=== PATIENT | male | born 1955 | race Caucasian/White ===

== ENCOUNTER → 2019-12-11 | Day surgery (SDC) | payer MEDICARE, MEDICAID ==
[~2019-12-11] MED LIST: LIDOCAINE HCL 1% 20ML VIAL (Pyxis) INJ ONE; SODIUM BICARBONATE 4% (2.4MEQ) 5ML VIAL IV ONE
== END | disposition home or self-care (01) ==
LOC: RADANGIO 10:37
PROVIDERS: ATTEND Podiatrist Foot & Ankle Surgery
DX: Z45.2 Encounter for adjustment and management of vascular access device (principal); Z79.899 Other long term (current) drug therapy; Z98.890 Other specified postprocedural states
CPT/HCPCS: 36573; C1725; J3490; 76937

== ENCOUNTER 2020-01-04 18:29 | Emergency (ER) | payer MEDICARE, MEDICAID ==
[~2020-01-04] VITALS: Ht 177.8 cm; Wt 83.0 kg
[2020-01-04 18:34] VITALS: BP 142/59
== END 2020-01-04 19:15 | disposition left against medical advice (07) ==
LOC: ER 18:29
DX: Z53.21 Procedure and treatment not carried out due to patient leaving prior to being seen by health care provider (principal)

== ENCOUNTER 2020-02-01 10:59 | Emergency (ER) | payer MEDICARE, MEDICAID ==
[~2020-02-01] VITALS: Ht 175.3 cm; Wt 79.0 kg
[2020-02-01 12:26] VITALS: BP 137/60
== END 2020-02-01 12:33 | disposition left against medical advice (07) ==
LOC: ER 10:59
DX: Z46.82 Encounter for fitting and adjustment of non-vascular catheter (principal); E11.9 Type 2 diabetes mellitus without complications; I10 Essential (primary) hypertension
CPT/HCPCS: 99281

== ENCOUNTER 2021-07-23 09:17 | Emergency (ER) | payer MEDICARE, MEDICAID ==
[~2021-07-23] VITALS: Ht 175.3 cm; Wt 84.0 kg
[2021-07-23] MEDS ORDERED: ACETAMINOPHEN 325MG TABLET PO STA (10:41)
[2021-07-23 11:20] VITALS: BP 123/75
[2021-07-23 12:08] LABS: CHLORIDE 103 mEq/L (98-107)
[2021-07-23 12:14] LABS: BASOPHILS % 0.3 % (0.0-2.0); EOSINOPHILS % 3.7 % (0.0-5.0); HEMATOCRIT. 46.4 % (42.0-52.0); HEMOGLOBIN. 15.9 g/dL (14.0-18.0); LYMPHOCYTES % 30.6 % (20.0-50.0); MEAN CORPUSCULAR HEMOGLOBIN 32.1 pg (28.0-32.0); MEAN CORPUSCULAR VOLUME 93.4 fL (80.0-94.0); MEAN PLATELET VOLUME 9.8 fl (7.4-10.4); MONOCYTES % 9.5 % (2.0-8.0); NEUTROPHILS % 55.9 % (40.0-76.0); PLATELET 181 x1000/uL (130-400); RED BLOOD CELL COUNT 4.97 mill/uL (4.7-6.1); RED CELL DISTRIBUTION WIDTH 14.1 % (11.6-14.6)
== END 2021-07-23 13:09 | disposition left against medical advice (07) ==
LOC: ER 09:50
DX: S81.802A Unspecified open wound, left lower leg, initial encounter (principal); X58.XXXA Exposure to other specified factors, initial encounter; Y93.89 Activity, other specified; Y92.89 Other specified places as the place of occurrence of the external cause; Y99.8 Other external cause status; E11.9 Type 2 diabetes mellitus without complications; I10 Essential (primary) hypertension; Z98.890 Other specified postprocedural states; I87.8 Other specified disorders of veins
CPT/HCPCS: 36415; 80053; 82962; 85025; 93970; 99284

== ENCOUNTER 2021-08-30 19:59 | Emergency (ER) | payer MEDICARE, MEDICAID ==
[~2021-08-30] VITALS: Ht 175.3 cm; Wt 88.2 kg
[2021-08-31 00:10] LABS: BASOPHILS % 0.8 % (0.0-2.0); EOSINOPHILS % 4.2 % (0.0-5.0); HEMATOCRIT. 45.8 % (42.0-52.0); HEMOGLOBIN. 16.1 g/dL (14.0-18.0); LYMPHOCYTES % 25.9 % (20.0-50.0); MEAN CORPUSCULAR HEMOGLOBIN 32.5 pg (28.0-32.0); MEAN CORPUSCULAR VOLUME 92.3 fL (80.0-94.0); MEAN PLATELET VOLUME 8.8 fl (7.4-10.4); MONOCYTES % 8.6 % (2.0-8.0); NEUTROPHILS % 60.5 % (40.0-76.0); PLATELET 175 x1000/uL (130-400); RED BLOOD CELL COUNT 4.95 mill/uL (4.7-6.1); RED CELL DISTRIBUTION WIDTH 14.3 % (11.6-14.6)
[2021-08-31 00:14] LABS: CHLORIDE 105 mEq/L (98-107)
[2021-08-31] MEDS ORDERED: MORPHINE SULFATE 4 MG/ML CPJ (NOT FOR IM USE) IV ONE (02:30)
[2021-08-31] MEDS ORDERED: IOHEXOL-350 100 ML BOTTLE ONE ×2 (03:18→03:22)
[2021-08-31 04:11] VITALS: BP 126/75
== END 2021-08-31 04:48 | disposition left against medical advice (07) ==
LOC: ER 19:59 → EDBEDREQ 08-31 04:42 → EDBEDREQTM 08-31 04:42 → EDBEDREQSVC 08-31 04:42 → ER 08-31 04:48 → CMPBEDREQ 08-31 05:39
DX: I73.9 Peripheral vascular disease, unspecified (principal); E11.9 Type 2 diabetes mellitus without complications; I10 Essential (primary) hypertension; Z86.718 Personal history of other venous thrombosis and embolism; Z98.890 Other specified postprocedural states
CPT/HCPCS: 36415; 71045; 80053; 83880; 85025; 93005; 93970; 96374; 99285; J2270; Q9967

== ENCOUNTER 2023-08-01 00:23 | Emergency (ER) | payer MEDICARE, MEDICAID ==
[~2023-08-01] VITALS: Ht 177.8 cm; Wt 82.0 kg
[2023-08-01 00:55] VITALS: BP 145/73; PULSE 83; RESP 14; TEMP 98.5; O2SAT 95
[2023-08-01] MEDS ORDERED: SODIUM CHLORIDE 0.9% 1000ML BAG (SEPSIS BOLUS) IV ONE (01:15)
[2023-08-01] MEDS ORDERED: PIPERACILLIN/TAZO 3.375G/50ML 50 ML IV ONE (01:15)
[2023-08-01] MEDS ORDERED: VANCOMYCIN 1G PREMIX 200 ML IV ONE (01:15)
== END 2023-08-01 02:22 | disposition left against medical advice (07) ==
LOC: ER 00:23
DX: S99.922A Unspecified injury of left foot, initial encounter (principal); I10 Essential (primary) hypertension; E11.9 Type 2 diabetes mellitus without complications; Z98.890 Other specified postprocedural states; X58.XXXA Exposure to other specified factors, initial encounter; Y93.89 Activity, other specified; Y92.89 Other specified places as the place of occurrence of the external cause; Y99.8 Other external cause status
CPT/HCPCS: 99281; J7030

== ENCOUNTER 2023-08-01 11:04 | Emergency (ER) | payer MEDICARE, MEDICAID ==
[~2023-08-01] VITALS: Ht 170.2 cm; Wt 78.0 kg
[2023-08-01 15:10] VITALS: BP 126/66; PULSE 89; RESP 16; TEMP 98.8
[2023-08-01] MEDS ORDERED: PIPERACILLIN/TAZO 3.375G/50ML 50 ML IV SCH (22:00)
== END 2023-08-01 15:00 | disposition left against medical advice (07) ==
LOC: ER 11:20 → CANBEDREQ 08-03 22:23
DX: L08.9 Local infection of the skin and subcutaneous tissue, unspecified (principal); E11.9 Type 2 diabetes mellitus without complications; I10 Essential (primary) hypertension; I82.402 Acute embolism and thrombosis of unspecified deep veins of left lower extremity; F19.90 Other psychoactive substance use, unspecified, uncomplicated; Z98.890 Other specified postprocedural states
CPT/HCPCS: 73620; 99283

== ENCOUNTER 2023-10-28 21:51 | Emergency (ER) | payer MEDICARE, MEDICAID ==
[~2023-10-28] VITALS: Ht 175.3 cm; Wt 82.0 kg
[2023-10-28 22:33] VITALS: RESP 16; O2SAT 94
[2023-10-29] MEDS: VANCOMYCIN 1G PREMIX 200 ML IV ONE (00:45)
[2023-10-29 01:24] LABS: BASOPHILS % 0.4 % (0.0-2.0); EOSINOPHILS % 4.4 % (0.0-5.0); HEMATOCRIT. 43.1 % (42.0-52.0); HEMOGLOBIN. 14.4 g/dL (14.0-18.0); LYMPHOCYTES % 29.8 % (20.0-50.0); MEAN CORPUSCULAR HEMOGLOBIN 32.1 pg (28.0-32.0); MEAN CORPUSCULAR HGB CONC 33.4 g/dL (31.0-37.0); MEAN CORPUSCULAR VOLUME 96.1 fL (80.0-94.0); MEAN PLATELET VOLUME 8.7 fl (7.4-10.4); MONOCYTES % 9.4 % (2.0-8.0); PLATELET 258 x1000/uL (130-400); RED BLOOD CELL COUNT 4.48 mill/uL (4.7-6.1); RED CELL DISTRIBUTION WIDTH 14.3 % (11.6-14.6); WHITE BLOOD COUNT 7.5 x1000/uL (4.5-11.0)
[2023-10-29 01:25] LABS: CHLORIDE 106 mEq/L (98-107); POTASSIUM 4.2 mEq/L (3.5-5.1); SODIUM 139 mEq/L (136-145)
[2023-10-29 01:26] LABS: CALCIUM 9.1 mg/dL (8.7-10.4); CARBON DIOXIDE 27 mEq/L (21-32)
[2023-10-29 01:31] LABS: GLUCOSE 146 mg/dL (70-105); UREA NITROGEN BLOOD 22 mg/dL (9-23)
[2023-10-29] MEDS: CEFTRIAXONE 1GM/50ML 50 ML IV ONE (04:30)
[2023-10-29 06:38] VITALS: BP 133/97; PULSE 16; TEMP 98.3
[2023-10-29] MEDS ORDERED: ACETAMINOPHEN 325MG TABLET PO PRN ×2 (08:45)
[2023-10-29] MEDS ORDERED: CLONIDINE 0.1MG TABLET PO PRN (08:45)
[2023-10-29] MEDS ORDERED: PIPERACILLIN/TAZO 3.375G/50ML 50 ML IV SCH ×2 (08:51→14:00)
[2023-10-29] MEDS ORDERED: AMLO10TA80 PO (08:52)
[2023-10-29] MEDS ORDERED: OXYC1TAB5 PO (08:52)
[2023-10-29] MEDS ORDERED: LISI10TA26 PO (08:52)
[2023-10-29] MEDS ORDERED: ATOR40TA70 PO (08:52)
[2023-10-29] MEDS ORDERED: HYDROCODONE/ACETAMINOPHEN 5/325MG TABLET PO PRN (09:00)
[2023-10-29] MEDS ORDERED: ATORVASTATIN CALCIUM 40MG TABLET PO SCH (09:00)
[2023-10-29] MEDS ORDERED: LISINOPRIL 10MG TABLET PO SCH (09:00)
[2023-10-29] MEDS ORDERED: AMLODIPINE 10MG TABLET PO SCH (09:00)
[2023-10-29] MEDS ORDERED: NALOXONE HCL 0.4MG/ML VIAL IV PRN (09:15)
[2023-10-29] MEDS ORDERED: PIPERACILLIN/TAZO 3.375G/50ML IV SCH (15:00)
== END 2023-10-29 10:27 | disposition left against medical advice (07) ==
LOC: ER 21:51 → CANBEDREQ 10-29 10:24 → ER 10-29 10:27
DX: E13.52 Other specified diabetes mellitus with diabetic peripheral angiopathy with gangrene (principal); I96 Gangrene, not elsewhere classified; I10 Essential (primary) hypertension; I82.409 Acute embolism and thrombosis of unspecified deep veins of unspecified lower extremity; F19.90 Other psychoactive substance use, unspecified, uncomplicated; Z98.890 Other specified postprocedural states
CPT/HCPCS: 36415; 73630; 80048; 85025; 99285

== ENCOUNTER 2024-11-17 15:54 | Inpatient (IN) | payer MEDICARE, MEDICAID ==
[~2024-11-17] VITALS: Ht 167.6 cm; Wt 65.3 kg
[~2024-11-17 15:54] MED LIST changes: +HYDR-4009 PO; -LIDOCAINE HCL 1% 20ML VIAL (Pyxis) INJ ONE; +METF-416 PO; -SODIUM BICARBONATE 4% (2.4MEQ) 5ML VIAL IV ONE; +TAMS-54 PO
[2024-11-17] MEDS: PIPERACILLIN/TAZO 3.375G/50ML 50 ML IV ONE (16:30)
[2024-11-17] MEDS: SODIUM CHLORIDE 0.9% (SEPSIS BOLUS) IV ONE (16:30)
[2024-11-17 17:03] LABS: BASOPHILS % 0.1 % (0.0-2.0); EOSINOPHILS % 0.2 % (0.0-5.0); HEMATOCRIT. 24.9 % (42.0-52.0); HEMOGLOBIN. 8.0 g/dL (14.0-18.0); LYMPHOCYTES % 14.8 % (20.0-50.0); MEAN PLATELET VOLUME 8.0 fl (7.4-10.4); MONOCYTES % 4.4 % (2.0-8.0); NEUTROPHILS % 80.5 % (40.0-76.0); PLATELET 149 x1000/uL (130-400); RED BLOOD CELL COUNT 2.88 mill/uL (4.7-6.1); RED CELL DISTRIBUTION WIDTH 17.5 % (11.6-14.6)
[2024-11-17 17:14] LABS: INR 1.3
[2024-11-17 17:22] LABS: CREATININE 0.8 mg/dL (0.6-1.3)
[2024-11-17 17:23] LABS: TROPONIN I HIGH SENSITIVITY 11 ng/L (3.0-53); UREA NITROGEN BLOOD 31 mg/dL (9-23)
[2024-11-17 17:24] LABS: ASPARTATE AMINOTRANSFERASE 33 IU/L (<34)
[2024-11-17 17:25] LABS: BILIRUBIN DIRECT 0.1 mg/dL (<=3.0); BILIRUBIN TOTAL 0.2 mg/dL (0.1-1.0); PROTEIN TOTAL 4.9 g/dL (6.0-8.3)
[2024-11-17] MEDS: MORPHINE SULFATE 4 MG/ML INJ (FOR IV/IM USE) IV ONE (17:58)
[2024-11-17] MEDS: VANCOMYCIN 1G PREMIX 200 ML IV ONE (17:59)
[2024-11-17 20:30] VITALS: BP_SYST 104; BP_SYST 110; BP_DIAS 61; BP_DIAS 70; PULSE 102; PULSE 54; RESP 18; RESP 19; TEMP 36.4; TEMP 36.6404; O2SAT 95
[2024-11-17] MEDS ORDERED: DEXTROSE 50% WATER 50ML SYRINGE IV PRN (23:45)
[2024-11-18 01:30] VITALS: BP 96/59; PULSE 91; RESP 16; TEMP 36.4; O2SAT 95
[2024-11-18] MEDS: HYDROCODONE/ACETAMINOPHEN 5/325MG TABLET PO PRN (01:33)
[2024-11-18 04:00] VITALS: BP 99/54; PULSE 88; RESP 17; TEMP 36.3; O2SAT 94
[2024-11-18 04:45] LABS: BASOPHILS % 0.1 % (0.0-2.0); EOSINOPHILS % 0.7 % (0.0-5.0); HEMATOCRIT. 22.4 % (42.0-52.0); HEMOGLOBIN. 7.4 g/dL (14.0-18.0); LYMPHOCYTES % 15.5 % (20.0-50.0); MEAN PLATELET VOLUME 7.9 fl (7.4-10.4); MONOCYTES % 4.6 % (2.0-8.0); NEUTROPHILS % 79.1 % (40.0-76.0); PLATELET 125 x1000/uL (130-400); RED BLOOD CELL COUNT 2.57 mill/uL (4.7-6.1); RED CELL DISTRIBUTION WIDTH 17.6 % (11.6-14.6)
[2024-11-18 04:55] LABS: CREATININE 0.7 mg/dL (0.6-1.3); TRIGLYCERIDE 38 mg/dL (0-150)
[2024-11-18 04:56] LABS: LDL CHOLESTEROL 11 mg/dL (5-100); UREA NITROGEN BLOOD 27 mg/dL (9-23)
[2024-11-18 04:57] LABS: ASPARTATE AMINOTRANSFERASE 29 IU/L (<34); BILIRUBIN TOTAL 0.2 mg/dL (0.1-1.0)
[2024-11-18 04:58] LABS: PROTEIN TOTAL 4.5 g/dL (6.0-8.3)
[2024-11-18] MEDS: BLOOD SUGAR DIAGNOSTIC STRIP TEST SCH (06:45)
[2024-11-18] MEDS: PIPERACILLIN/TAZO 3.375G/50ML 50 ML IV SCH (06:51)
[2024-11-18] MEDS: INSULIN LISPRO 100 UNITS/ML SUBCUT SCH (07:15)
[2024-11-18 08:00] VITALS: BP 93/47; PULSE 91; RESP 18; TEMP 36.2; O2SAT 96
[2024-11-18] MEDS: TAMSULOSIN HCL 0.4MG SR CAPSULE PO SCH (09:24)
[2024-11-18] MEDS: INSULIN GLARGINE 100 UNITS/ML SUBCUT SCH (09:25)
[2024-11-18 12:00] VITALS: BP 99/44; PULSE 79; RESP 20; TEMP 36.1; O2SAT 99
[2024-11-18] MEDS: VANCOMYCIN 750MG/150ML (BAXTER) IV SCH (12:00)
[2024-11-18] MEDS: HYDROCODONE/ACETAMINOPHEN 10/325MG TABLET PO PRN (15:17)
[2024-11-18 16:00] VITALS: BP 94/62; PULSE 82; RESP 19; TEMP 36.3; O2SAT 97
[2024-11-18] MEDS ORDERED: NALOXONE HCL 0.4MG/ML VIAL IV PRN (17:30)
[2024-11-18] MEDS: FLUCONAZOLE 100MG TABLET PO SCH (19:11)
[2024-11-18] MEDS: MEROPENEM 1G/100ML 100 ML IV SCH (19:11)
[2024-11-18 20:00] VITALS: BP 97/41; PULSE 85; RESP 16; TEMP 36.2; O2SAT 92
[2024-11-19] VITALS: BP 133/77; PULSE 88; RESP 18; TEMP 36.4; O2SAT 98
[2024-11-19 08:00] VITALS: BP 115/63; PULSE 95; RESP 19; TEMP 36.4; O2SAT 98
[2024-11-19 12:00] VITALS: BP 117/87; PULSE 95; RESP 20; TEMP 35.7; O2SAT 98
[2024-11-19] MEDS: OXYCODONE HCL/ACETAMINOPHEN 5/325MG TABLET PO PRN (18:00)
[2024-11-20 05:00] VITALS: BP 97/60; PULSE 82; RESP 18; TEMP 36.4; O2SAT 96
[2024-11-20 21:21] LABS: PLATELET 143 x1000/uL (130-400); RED BLOOD CELL COUNT 2.83 mill/uL (4.7-6.1); RED CELL DISTRIBUTION WIDTH 17.4 % (11.6-14.6)
[2024-11-20 22:20] LABS: CREATININE 0.8 mg/dL (0.6-1.3); UREA NITROGEN BLOOD 24 mg/dL (9-23)
[2024-11-20 22:28] LABS: INR 1.2
[2024-11-21 04:00] VITALS: RESP 15; TEMP 36.7
[2024-11-21 12:00] VITALS: BP 105/72; PULSE 87; RESP 20; TEMP 36.5; O2SAT 97
[2024-11-21 16:00] VITALS: BP 116/63; PULSE 83; RESP 20; TEMP 36.6; O2SAT 96
[2024-11-22] VITALS: BP 134/71; PULSE 77; RESP 18; TEMP 36.6; O2SAT 96
[2024-11-22 08:00] VITALS: BP 119/67; PULSE 78; RESP 18; TEMP 36.6; O2SAT 100
[2024-11-22 16:00] VITALS: BP 132/74; PULSE 79; RESP 19; TEMP 36.7; O2SAT 99
[2024-11-22] MEDS: MORPHINE SULFATE 2 MG/ML INJ (NOT FOR IM USE) IV SCH (20:55)
[2024-11-23 08:00] VITALS: BP 113/70; PULSE 73; RESP 20; TEMP 36.6; O2SAT 100
[2024-11-23] MEDS: MORPHINE SULFATE 2 MG/ML INJ (NOT FOR IM USE) IV SCH (09:44)
[2024-11-23 10:17] LABS: BASOPHILS % 0.5 % (0.0-2.0); EOSINOPHILS % 1.0 % (0.0-5.0); HEMATOCRIT. 23.9 % (42.0-52.0); HEMOGLOBIN. 7.7 g/dL (14.0-18.0); LYMPHOCYTES % 21.6 % (20.0-50.0); MEAN PLATELET VOLUME 7.5 fl (7.4-10.4); MONOCYTES % 6.1 % (2.0-8.0); NEUTROPHILS % 70.8 % (40.0-76.0); PLATELET 141 x1000/uL (130-400); RED BLOOD CELL COUNT 2.74 mill/uL (4.7-6.1); RED CELL DISTRIBUTION WIDTH 17.3 % (11.6-14.6)
[2024-11-23 10:58] LABS: CREATININE 0.6 mg/dL (0.6-1.3); UREA NITROGEN BLOOD 22 mg/dL (9-23)
[2024-11-23 12:00] VITALS: BP 122/64; PULSE 78; RESP 17; TEMP 36.3; O2SAT 97
[2024-11-23 13:29] LABS: *AMPHETAMINES SCREEN URINE NEGATIVE (NEGATIVE); *BARBITURATES SCREEN URINE NEGATIVE (NEGATIVE); *BENZODIAZEPINES SCREEN URINE NEGATIVE (NEGATIVE); *COCAINE SCREEN URINE NEGATIVE (NEGATIVE); CANNABINOID URINE SCREEN NEGATIVE (NEGATIVE); ECSTASY MDMA SCREEN URINE NEGATIVE (NEGATIVE); METHADONE URINE SCREEN NEGATIVE (NEGATIVE); OPIATES URINE SCREEN PRESUMPTIVE POSITIVE (NEGATIVE); PHENCYCLIDINE URINE SCREEN NEGATIVE (NEGATIVE)
[2024-11-23] MEDS ORDERED: LIDOCAINE HCL 1% 10 MG/ML 10ML VIAL ONE (14:09)
[2024-11-23] MEDS ORDERED: BUPIVACAINE HCL/PF 0.5% (5MG/ML) 10ML ONE (14:09)
[2024-11-23] MEDS ORDERED: ETOMIDATE 2MG/ML 10ML VIAL IV ONE (14:30)
[2024-11-23] MEDS ORDERED: PROPOFOL 200MG/20ML VIAL IV ONE (14:30)
[2024-11-23] MEDS ORDERED: FENTANYL CITRATE/PF 50MCG/ML 2ML VIAL ONE ×2 (14:31→15:26)
[2024-11-23] MEDS ORDERED: MIDAZOLAM HCL 2 MG/2 ML VIAL ONE (14:33)
[2024-11-23] MEDS ORDERED: PHENYLEPHRINE HCL 10MG/ML 1ML IV ONE (15:12)
[2024-11-23 17:20] VITALS: BP 109/66; PULSE 77; TEMP 36.05844
[2024-11-23 17:35] VITALS: BP 98/65; PULSE 79; TEMP 35.89176
[2024-11-23 20:00] VITALS: BP 114/69; PULSE 81; RESP 18; TEMP 36.6; O2SAT 96
[2024-11-23] MEDS: MORPHINE SULFATE 2 MG/ML INJ (NOT FOR IM USE) IV PRN (20:51)
[2024-11-23] MEDS: VANCOMYCIN 500MG PREMIX 100 ML IV SCH (21:18)
[2024-11-23 21:56] LABS: INR 1.2
[2024-11-24 04:00] VITALS: BP 93/55; PULSE 87; RESP 19; TEMP 36.3; O2SAT 95
[2024-11-24 08:00] VITALS: BP 99/51; PULSE 81; RESP 18; TEMP 36.4; O2SAT 97
[2024-11-24 12:00] VITALS: BP 119/72; PULSE 89; RESP 18; TEMP 36.8; O2SAT 99
[2024-11-24] MEDS: MEROPENEM 1G/100ML 100 ML IV SCH (14:58)
[2024-11-25 06:38] LABS: BASOPHILS % 0.3 % (0.0-2.0); EOSINOPHILS % 0.3 % (0.0-5.0); HEMATOCRIT. 22.6 % (42.0-52.0); HEMOGLOBIN. 7.4 g/dL (14.0-18.0); LYMPHOCYTES % 18.3 % (20.0-50.0); MEAN PLATELET VOLUME 7.3 fl (7.4-10.4); MONOCYTES % 6.8 % (2.0-8.0); NEUTROPHILS % 74.3 % (40.0-76.0); PLATELET 127 x1000/uL (130-400); RED BLOOD CELL COUNT 2.67 mill/uL (4.7-6.1); RED CELL DISTRIBUTION WIDTH 17.2 % (11.6-14.6)
[2024-11-25 06:43] LABS: CREATININE 0.6 mg/dL (0.6-1.3); UREA NITROGEN BLOOD 22 mg/dL (9-23)
[2024-11-25 17:39] VITALS: BP 92/59; PULSE 89; TEMP 98.2; O2SAT 98
[2024-11-25 20:20] VITALS: BP 109/60; PULSE 85; RESP 20
[2024-11-26] MEDS ORDERED: VANCOMYCIN 750MG PREMIX 150 ML IV SCH (15:00)
== END 2024-11-25 21:27 | disposition left against medical advice (07) | DRG 463 ==
LOC: ER 15:54 → 5WST 18:40 → EDBEDREQTM 18:50 → EDBEDREQ 18:50 → ENRESERV 19:00 → 8EST 11-21 03:49
PROVIDERS: ADMIT Internal Medicine; ATTEND Internal Medicine
PROC: 30233N1 Transfusion of Nonautologous Red Blood Cells into Peripheral Vein, Percutaneous Approach (ICD-10-PCS; principal; 2024-11-23)
PROC: 0JBN0ZZ Excision of Right Lower Leg Subcutaneous Tissue and Fascia, Open Approach (ICD-10-PCS; 2024-11-23)
DX: T87.53 Necrosis of amputation stump, right lower extremity (principal); E43 Unspecified severe protein-calorie malnutrition; K68.12 Psoas muscle abscess; L89.304 Pressure ulcer of unspecified buttock, stage 4; L89.623 Pressure ulcer of left heel, stage 3; L03.115 Cellulitis of right lower limb; E11.52 Type 2 diabetes mellitus with diabetic peripheral angiopathy with gangrene; I50.22 Chronic systolic (congestive) heart failure; I82.401 Acute embolism and thrombosis of unspecified deep veins of right lower extremity; L97.329 Non-pressure chronic ulcer of left ankle with unspecified severity; Z16.21 Resistance to vancomycin; I69.359 Hemiplegia and hemiparesis following cerebral infarction affecting unspecified side; T87.81 Dehiscence of amputation stump; T87.43 Infection of amputation stump, right lower extremity; D64.9 Anemia, unspecified; I11.0 Hypertensive heart disease with heart failure; K74.60 Unspecified cirrhosis of liver; Y69 Unspecified misadventure during surgical and medical care; I95.9 Hypotension, unspecified; E78.5 Hyperlipidemia, unspecified; N40.0 Benign prostatic hyperplasia without lower urinary tract symptoms; K26.9 Duodenal ulcer, unspecified as acute or chronic, without hemorrhage or perforation; K29.70 Gastritis, unspecified, without bleeding; Z53.29 Procedure and treatment not carried out because of patient's decision for other reasons; Z86.14 Personal history of Methicillin resistant Staphylococcus aureus infection; Z89.611 Acquired absence of right leg above knee; Z68.23 Body mass index [BMI] 23.0-23.9, adult; Z79.4 Long term (current) use of insulin; Z91.199 Patient's noncompliance with other medical treatment and regimen due to unspecified reason; Z79.899 Other long term (current) drug therapy; Z22.322 Carrier or suspected carrier of Methicillin resistant Staphylococcus aureus
CPT/HCPCS: 36415; 71045; 80048; 80053; 80061; 80076; 80202; 80305; 82962; 83036; 83605; 84145; 84484; 85025; 85027; 85384; 86850; 86900; 86920; 87070; 87077; 87106; 87186; 88307; 88311; 93005; 93923; 99291; A4606; J0665; J1815; J2003; J2185; J2250; J2270; J2371; J2543; J2704; J3010; J3373; J3490; J7030; P9016